=== PATIENT | male | born 1995 | race Caucasian/White ===

== ENCOUNTER 2017-01-31 15:17 | Emergency (ER) | payer BC ==
[~2017-01-31] VITALS: Ht 182.9 cm; Wt 72.6 kg
[2017-01-31 15:27] VITALS: BP_SYST 132
[2017-01-31 16:40] VITALS: BP_SYST 128
== END 2017-01-31 16:39 | disposition home or self-care (01) ==
LOC: SED 15:17
DX: S62.015A Nondisplaced fracture of distal pole of navicular [scaphoid] bone of left wrist, initial encounter for closed fracture (principal); V00.131A Fall from skateboard, initial encounter; Y93.51 Activity, roller skating (inline) and skateboarding; Y92.89 Other specified places as the place of occurrence of the external cause; Y99.8 Other external cause status
CPT/HCPCS: 99284

== ENCOUNTER 2017-03-24 19:55 | Emergency (ER) | payer BC ==
[~2017-03-24] VITALS: Ht 180.3 cm; Wt 70.8 kg
[2017-03-24 20:08] VITALS: BP_SYST 147
[2017-03-24 20:58] LABS: BILIRUBIN,URINE NEGATIVE (NEGATIVE); BLOOD, URINE NEGATIVE (NEGATIVE); CLARITY/URINE CLEAR (CLEAR); COLOR,URINE YELLOW (YELLOW); GLUCOSE,URINE NEGATIVE (NEGATIVE); KETONES,URINE NEGATIVE (NEGATIVE); LEUKOCYTE ESTERASE ,URINE NEGATIVE (NEGATIVE); NITRITE, URINE NEGATIVE (NEGATIVE); PH,URINE 7.5 (5.0-8.0); PROTEIN URINE NEGATIVE (NEGATIVE); UROBILINOGEN,URINE 0.2 (0.2-1.0)
[2017-03-24 21:22] LABS: BARBITURATE, URINE NEGATIVE (NEG <=200); BENZODIAZEPINE, URINE NEGATIVE (NEG <=150); CANNABINOID, URINE NEGATIVE (NEG <=50); COCAINE, URINE NEGATIVE (NEG <=150); METHAMPHETAMINES SCREEN,URINE NEGATIVE (NEG <=500); OPIATE, URINE NEGATIVE (NEG <=100); PHENCYCLIDINE SCREEN,URINE NEGATIVE (NEG <=25); UR TRICYCLIC ANTIDEPRESSANTS NEGATIVE (NEG <=300); URINE AMPHETAMINE NEGATIVE (NEG <=500); URINE METHADONE NEGATIVE (NEG <=200); URINE OXYCODONE SCREEN NEGATIVE (NEG <=100); URINE PROPOXYPHENE SCREEN NEGATIVE (NEG <=300)
--- NOTE | 2017-03-24 22:23 | NUR ---
Patient to ER bed 2 to gown for evaluation. Side rails up. Report given to DANIELLA JACKMAN.
--- NOTE | 2017-03-24 22:35 | NUR ---
Patient AOx4, ambulatory, presents to ER with complaint of chest pressure, palpitations, and feelings of anxiety. Patient states he has had episodes of anxiety more frequently. Denies any chest pain at this time. No acute distress noted. HR 67, O2 sat 96% RA.
--- NOTE | 2017-03-24 22:40 | NUR ---
ER MD White at bedside examining patient.
[2017-03-24 23:30] VITALS: BP_SYST 147
--- NOTE | 2017-03-24 23:30 | NUR ---
Patient given written and verbal discharge instructions and verbalizes understanding. ER MD discussed with patient the results and treatment provided. Patient in stable condition. ID arm band removed. IV catheter removed intact and dressing applied, no active bleeding. Patient educated on pain management and to follow up with PMD. Pain Scale 0/10. Opportunity for questions provided and answered.
== END 2017-03-24 23:30 | disposition home or self-care (01) ==
LOC: SED 19:55
DX: F41.9 Anxiety disorder, unspecified (principal)
CPT/HCPCS: 71010; 80307; 81003; 99285

== ENCOUNTER 2017-07-03 19:53 | Emergency (ER) | payer BC ==
[~2017-07-03] VITALS: Ht 182.9 cm; Wt 69.9 kg
[2017-07-03 19:59] VITALS: BP_SYST 129
[2017-07-03 21:53] VITALS: BP_SYST 127
== END 2017-07-03 21:53 | disposition home or self-care (01) ==
LOC: SED 19:53
DX: J40 Bronchitis, not specified as acute or chronic (principal); B34.9 Viral infection, unspecified
CPT/HCPCS: 71020-TC; 99284

== ENCOUNTER 2018-02-11 23:45 | Emergency (ER) | payer BC ==
[~2018-02-11] VITALS: Ht 185.4 cm; Wt 70.3 kg
[2018-02-12 00:12] VITALS: BP_SYST 133
[2018-02-12 01:43] VITALS: BP_SYST 128
== END 2018-02-12 01:43 | disposition home or self-care (01) ==
LOC: SED 23:45
DX: S16.1XXA Strain of muscle, fascia and tendon at neck level, initial encounter (principal); R03.0 Elevated blood-pressure reading, without diagnosis of hypertension; V89.2XXA Person injured in unspecified motor-vehicle accident, traffic, initial encounter; Y93.89 Activity, other specified; Y92.411 Interstate highway as the place of occurrence of the external cause; Y99.8 Other external cause status
CPT/HCPCS: 99283

== ENCOUNTER 2019-08-09 18:11 | Emergency (ER) | payer BC ==
[~2019-08-09] VITALS: Ht 185.4 cm; Wt 72.6 kg
[2019-08-09 18:27] VITALS: BP_SYST 145
--- NOTE | 2019-08-09 18:30 | NUR ---
pt to wr
--- NOTE | 2019-08-09 21:40 | NUR ---
Ambulatory to hallway ch1 with mother.
--- NOTE | 2019-08-09 21:54 | NUR ---
Pt c/o right lateral big toe pain +redness at the nail site x3 days. No drainage.
--- NOTE | 2019-08-09 22:32 | NUR ---
ER Dr. Diaz at bedside examining patient.
[2019-08-09] MEDS ORDERED: CEPHALEXIN 500 MG CAPSULE PO ONE (22:45)
--- NOTE | 2019-08-09 23:12 | NUR ---
Patient given written and verbal discharge instructions and verbalizes understanding. ER MD discussed with patient the results and treatment provided. Patient in stable condition. ID arm band removed. Rx of keflex which pt will start tonight given. Patient educated on pain management and to follow up with PMD. Pain Scale 3/10. Opportunity for questions provided and answered.
[2019-08-09 23:13] VITALS: BP_SYST 124
== END 2019-08-09 23:13 | disposition home or self-care (01) ==
LOC: SED 18:11
DX: L03.031 Cellulitis of right toe (principal)
CPT/HCPCS: 99283

== ENCOUNTER 2020-04-22 10:49 | Emergency (ER) | payer BC ==
[~2020-04-22] VITALS: Ht 185.4 cm; Wt 76.2 kg
[2020-04-22 10:57] VITALS: BP_SYST 147
[2020-04-22 11:38] LABS: BASOPHILS # (AUTO) 0.1 K/uL (0.0-0.2); EOSINOPHILS # (AUTO) 0.2 K/uL (0.0-0.4); EOSINOPHILS % (AUTO) 2.3 % (0.0-4.0); HEMATOCRIT 46.2 % (36-54); HEMOGLOBIN 15.8 g/dL (14.0-18.0); LYMPHOCYTES # (AUTO) 1.7 K/uL (1.0-5.5); LYMPHOCYTES % (AUTO) 19.5 % (20.5-51.5); MEAN CORPUSCULAR HEMOGLOBIN 30 pg (27-31); MEAN CORPUSCULAR HGB CONC 34 % (32-36); MEAN CORPUSCULAR VOLUME 88 fL (79.0-98.0); MONOCYTES # (AUTO) 0.9 K/uL (0.0-1.0); MONOCYTES % (AUTO) 10.1 % (1.7-9.3); NEUTROPHILS # (AUTO) 5.9 K/uL (1.8-7.7); NEUTROPHILS % (AUTO) 67.1 % (40.0-70.0); PLATELET COUNT (AUTO) 172 K/uL (130-430); RED BLOOD CELL COUNT(AUTO) 5.26 MIL/uL (4.2-6.2); RED CELL DISTRIBUTION WIDTH 14.5 % (9.0-15.0); WHITE BLOOD COUNT (AUTO) 8.8 K/uL (4.8-10.8)
[2020-04-22 11:51] LABS: CALCIUM 8.2 mg/dL (8.4-11.0); CREATININE 0.86 mg/dL (0.55-1.30); POTASSIUM 3.9 mmol/L (3.5-5.1)
[2020-04-22 11:52] LABS: INR 1.2 (0.80-1.20); PROTHROMBIN TIME 11.9 SECS (9.5-12.5)
[2020-04-22 12:05] LABS: ALBUMIN 3.7 g/dL (3.4-4.8)
[2020-04-22 12:10] LABS: C-REACTIVE PROTEIN QUANT 1.5 mg/dL (0-0.5)
[2020-04-22 13:31] VITALS: BP_SYST 114
== END 2020-04-22 13:31 | disposition home or self-care (01) ==
LOC: SED 10:49
DX: I88.9 Nonspecific lymphadenitis, unspecified (principal)
CPT/HCPCS: 36415; 80053; 83605; 85025; 85610-TC; 85730-TC; 86140; 86308-TC; 99283

== ENCOUNTER 2021-02-17 10:34 | Emergency (ER) | payer BC, SELFPAY ==
[~2021-02-17] VITALS: Ht 185.4 cm; Wt 75.7 kg
--- NOTE | 2021-02-17 10:40 | NUR ---
Patient to TENT2 to gown for evaluation. Side rails up.
--- NOTE | 2021-02-17 10:45 | NUR ---
Pt walked in to ER with c/o cough, congestion and runny nose. V/S stable, pt is afebrile. No acute distress noted.
--- NOTE | 2021-02-17 10:55 | NUR ---
ER Dr. Villar at bedside examining patient.
[2021-02-17 10:59] VITALS: BP_SYST 124
[2021-02-17 12:15] LABS: STREPTOCOCCUS A SCREEN (RAPID) NEGATIVE (NEGATIVE)
[2021-02-17] MEDS ORDERED: PSEU120T57 PO (12:51)
[2021-02-17] MEDS ORDERED: ZIT250 PO (12:51)
[2021-02-17] MEDS ORDERED: NAPR-1172 PO (12:51)
[2021-02-17 12:59] VITALS: BP_SYST 124
--- NOTE | 2021-02-17 13:01 | NUR ---
Patient given written and verbal discharge instructions and verbalizes understanding. ER MD discussed with patient the results and treatment provided. Patient in stable condition. ID arm band removed. Rx of Naproxyn, Sudafed and Zithromax given. Patient educated on pain management and to follow up with PMD. Pain Scale 3. Opportunity for questions provided and answered. Medication side effect fact sheet provided.
== END 2021-02-17 13:01 | disposition home or self-care (01) ==
LOC: SED 10:34
DX: J02.9 Acute pharyngitis, unspecified (principal); J32.9 Chronic sinusitis, unspecified; Z20.822 Contact with and (suspected) exposure to COVID-19; Z79.899 Other long term (current) drug therapy
CPT/HCPCS: 36415; 86403; 87081; 99283

== ENCOUNTER → 2021-03-02 | Emergency (ER) | payer BC, SELFPAY ==
[~2021-03-02] VITALS: Ht 185.4 cm; Wt 77.1 kg
[~2021-03-02] MED LIST: IBUP-1971 PO; NAPR-1172 PO; PSEU120T57 PO; PSEU30TA36 PO; ZIT250 PO
[2021-03-02 14:27] VITALS: BP_SYST 135
[2021-03-02 17:04] LABS: BASOPHILS % (AUTO) 0.5 % (0.0-2.0); EOSINOPHILS % (AUTO) 0.5 % (0.0-4.0); HEMATOCRIT 49.3 % (36-54); LYMPHOCYTES # (AUTO) 1.3 K/uL (1.0-5.5); LYMPHOCYTES % (AUTO) 16.9 % (20.5-51.5); MEAN CORPUSCULAR HEMOGLOBIN 31 pg (27-31); MEAN CORPUSCULAR HGB CONC 35 % (32-36); MEAN CORPUSCULAR VOLUME 89 fL (79.0-98.0); NEUTROPHILS % (AUTO) 68.1 % (40.0-70.0); PLATELET COUNT (AUTO) 165 K/uL (130-430); RED BLOOD CELL COUNT(AUTO) 5.52 MIL/uL (4.2-6.2); RED CELL DISTRIBUTION WIDTH 13.7 % (9.0-15.0); WHITE BLOOD COUNT (AUTO) 7.4 K/uL (4.8-10.8)
[2021-03-02 17:08] LABS: CALCIUM 9.5 mg/dL (8.4-11.0); CREATININE 1.12 mg/dL (0.55-1.30); POTASSIUM 4.4 mmol/L (3.5-5.1)
[2021-03-02 17:10] LABS: PROTHROMBIN TIME 10.4 SECS (9.5-12.5)
[2021-03-02 17:13] LABS: ALBUMIN 4.2 g/dL (3.4-4.8); TOTAL BILIRUBIN 0.7 mg/dL (0.0-1.0)
[2021-03-02 17:16] LABS: C-REACTIVE PROTEIN QUANT 2.1 mg/dL (0-0.5)
[2021-03-02 17:45] LABS: ERYTHROCYTE SEDIMENTATION RATE 2 MM/HR (0-15)
== END | disposition home or self-care (01) ==
LOC: SED 14:27
DX: G43.909 Migraine, unspecified, not intractable, without status migrainosus (principal); Z79.899 Other long term (current) drug therapy; Z20.822 Contact with and (suspected) exposure to COVID-19
CPT/HCPCS: 36415; 70450-TC; 76376; 80053; 85025; 85610-TC; 85651-TC; 85730-TC; 86140; 99284

== ENCOUNTER 2021-05-24 01:35 | Emergency (ER) | payer BC, SELFPAY ==
[~2021-05-24] VITALS: Ht 185.4 cm; Wt 74.8 kg
--- NOTE | 2021-05-24 01:44 | NUR ---
Patient to ER bed 7 to gown for evaluation. Side rails up. Report given to MIRYAM BREWER.
[2021-05-24 01:45] VITALS: BP_SYST 126
--- NOTE | 2021-05-24 01:58 | NUR ---
ER Dr. Villar at bedside examining patient.
[2021-05-24] MEDS ORDERED: NAPR-1172 PO (02:25)
[2021-05-24 02:36] VITALS: BP_SYST 126
--- NOTE | 2021-05-24 02:37 | NUR ---
Patient given written and verbal discharge instructions and verbalizes understanding. ER MD discussed with patient the results and treatment provided. Patient in stable condition. ID arm band removed. Rx of NAPROXEN given. Patient educated on pain management and to follow up with PMD. Pain Scale 2/10. Opportunity for questions provided and answered. Medication side effect fact sheet provided.
== END 2021-05-24 02:35 | disposition home or self-care (01) ==
LOC: SED 01:35
DX: S83.91XA Sprain of unspecified site of right knee, initial encounter (principal); Z79.899 Other long term (current) drug therapy; X50.3XXA Overexertion from repetitive movements, initial encounter; Y93.41 Activity, dancing; Y92.89 Other specified places as the place of occurrence of the external cause; Y99.8 Other external cause status
CPT/HCPCS: 73564; 99283

== ENCOUNTER 2021-09-15 20:38 | Emergency (ER) | payer BC, SELFPAY ==
[~2021-09-15] VITALS: Ht 185.4 cm; Wt 77.1 kg
[2021-09-15 20:59] VITALS: BP_SYST 143
[2021-09-15] MEDS ORDERED: LIDOCAINE VISCOUS 2%, 15 ML UDC MM ONE (23:30)
[2021-09-16] MEDS ORDERED: ACET12.55 PO (01:08)
[2021-09-16] MEDS ORDERED: IBUP100O22 PO (01:08)
[2021-09-16 01:12] LABS: STREPTOCOCCUS A SCREEN (RAPID) NEGATIVE (NEGATIVE)
[2021-09-16] MEDS ORDERED: IBUPROFEN 100 MG/5 ML UDC PO ONE (01:15)
[2021-09-16] MEDS ORDERED: IBUPROFEN 100 MG/5 ML UDC ONE (01:15)
[2021-09-16 01:22] VITALS: BP_SYST 143
== END 2021-09-16 01:23 | disposition home or self-care (01) ==
LOC: SED 20:38
DX: J02.8 Acute pharyngitis due to other specified organisms (principal); B97.89 Other viral agents as the cause of diseases classified elsewhere; Z79.899 Other long term (current) drug therapy; Z20.822 Contact with and (suspected) exposure to COVID-19
CPT/HCPCS: 86403; 87081; 87426; 87804 ×2; 99283; J2001; 36415

== ENCOUNTER 2024-01-19 13:13 | Emergency (ER) | payer BC, MEDICAID ==
[~2024-01-19] VITALS: Ht 185.4 cm; Wt 86.2 kg
[~2024-01-19 13:13] MED LIST changes: +ACET12.55 PO; +IBUP100O22 PO
[2024-01-19 13:18] VITALS: BP_SYST 144; PULSE 73; RESP 20; TEMP 97.3; O2SAT 98
[2024-01-19 14:09] VITALS: BP_SYST 144; PULSE 77; RESP 20; TEMP 97.3; O2SAT 98
== END 2024-01-19 14:08 | disposition home or self-care (01) ==
LOC: SED 13:13
DX: R55 Syncope and collapse (principal); Z79.899 Other long term (current) drug therapy
CPT/HCPCS: 70450-TC; 99284

== ENCOUNTER 2024-03-20 18:57 | Emergency (ER) | payer SELFPAY ==
[~2024-03-20] VITALS: Ht 185.4 cm; Wt 88.5 kg
[2024-03-20 19:24] VITALS: BP_SYST 139; PULSE 102; RESP 20; TEMP 100; O2SAT 98
[2024-03-20 20:45] LABS: INFLUENZA TYPE A Negative (NEGATIVE); INFLUENZA TYPE B NEGATIVE (NEGATIVE)
[2024-03-20] MEDS ORDERED: IBUP-1969 PO (22:04)
[2024-03-20 22:29] VITALS: BP_SYST 139; PULSE 95; RESP 20; TEMP 98.8; O2SAT 99
== END 2024-03-20 22:29 | disposition home or self-care (01) ==
LOC: SED 18:57
DX: G44.209 Tension-type headache, unspecified, not intractable (principal); R42 Dizziness and giddiness; Z20.822 Contact with and (suspected) exposure to COVID-19; Z91.018 Allergy to other foods; Z79.899 Other long term (current) drug therapy; Z79.2 Long term (current) use of antibiotics
CPT/HCPCS: 36415; 70450-TC; 99284

== ENCOUNTER 2024-03-29 18:56 | Emergency (ER) | payer SELFPAY ==
[~2024-03-29] VITALS: Ht 185.4 cm; Wt 87.5 kg
[~2024-03-29 18:56] MED LIST changes: +IBUP-1969 PO
[2024-03-29 20:06] VITALS: BP_SYST 129; PULSE 88; RESP 20; TEMP 97.8; O2SAT 96
[2024-03-29] MEDS: predniSONE 20 MG TABLET PO ONE (23:11)
[2024-03-29] MEDS: IPRATROPIUM/ALBUTEROL SULFATE 3 ML AMPUL.NEB (DUONEB) INH ONE (23:24)
[2024-03-29] MEDS ORDERED: METH-776 PO (23:45)
[2024-03-29] MEDS ORDERED: AUG875 PO (23:45)
[2024-03-29] MEDS ORDERED: ALBMDI INH (23:45)
[2024-03-29 23:51] VITALS: BP_SYST 125; PULSE 90; RESP 18; TEMP 97.8; O2SAT 97
== END 2024-03-29 23:51 | disposition home or self-care (01) ==
LOC: SED 18:56
DX: J45.909 Unspecified asthma, uncomplicated (principal); Z91.018 Allergy to other foods; Z79.899 Other long term (current) drug therapy; Z79.2 Long term (current) use of antibiotics
CPT/HCPCS: 99283; 94640; J7512

== ENCOUNTER 2024-03-31 02:26 | Emergency (ER) | payer SELFPAY ==
[~2024-03-31 02:26] MED LIST changes: +ALBMDI INH; +AUG875 PO; +METH-776 PO
[2024-03-31 02:32] VITALS: BP_SYST 153; PULSE 82; RESP 16; TEMP 97.5; O2SAT 98
[2024-03-31] MEDS: ALBUTEROL SULFATE 0.083% 2.5 MG/3 ML VIAL.NEB INH ONE (03:08)
[2024-03-31] MEDS: IPRATROPIUM BROM 0.5 MG/2.5 ML VIAL.NEB (ATROVENT) INH ONE (03:08)
[2024-03-31] MEDS ORDERED: LEVO750T64 PO (03:28)
[2024-03-31] MEDS: DEXAMETHASONE SOD PHOSPHATE 10 MG/ML VIAL PO ONE (03:37)
[2024-03-31 03:42] VITALS: BP_SYST 153; PULSE 82; RESP 16; TEMP 97.5; O2SAT 98
== END 2024-03-31 03:42 | disposition home or self-care (01) ==
LOC: SED 02:26
DX: J18.8 Other pneumonia, unspecified organism (principal); R21 Rash and other nonspecific skin eruption; Z91.018 Allergy to other foods; Z79.899 Other long term (current) drug therapy; Z79.2 Long term (current) use of antibiotics
CPT/HCPCS: 99283; 71045; 94640; J1100